=== PATIENT | female | born 1990 | race Caucasian/White ===

== ENCOUNTER → 2017-02-25 | Outpatient (REF) ==
[~2017-02-25] MED LIST: CEFTIN250 M1 PO; FLEXERIL10 MG PO; LORTAB 5/500 501 TAB PO; MACROBID 1100 MG/CAP; MOTRIN 800800 MG/TAB PO; NAPROSYN500 MG PO; NO HOME MEDICATIONS; PRENATAL1 TA1 PO; SKELAXIN800 MG PO; SYNTHROID0.1 MG/TAB PO
== END ==
LOC: WSOH 08:20
DX: Z00.00 Encounter for general adult medical examination without abnormal findings (principal)